=== PATIENT | male | born 2000 | race Two or more races ===

== ENCOUNTER 2024-07-27 16:08 | Emergency (ER) | payer SELFPAY ==
[~2024-07-27] VITALS: Ht 167.6 cm; Wt 89.9 kg
--- NOTE | 2024-07-27 16:43 | DVH ---
EXAM: XR Abdomen, 1 View CLINICAL INDICATION: pain TECHNIQUE: Frontal supine view of the abdomen/pelvis. COMPARISON: None FINDINGS: GASTROINTESTINAL TRACT: Fecal retention in the colon consistent with constipation. No dilation. BONES/JOINTS: Unremarkable. No acute fracture. OTHER FINDINGS: . . . .. IMPRESSION: Fecal retention in the colon consistent with constipation.
--- NOTE | 2024-07-27 16:55 | ED.PDOC ---
GI ASSESSMENT HPI Comments 23y M who presents to the ED for chief complaint of abdominal pain. Pt states he has been having diffuse abdominal pain for the past 2-3 days. Pt states the pain is diffusely located, achy in nature, constant, non-radiating rating the pain 3/10, with no associated exacerbating or relieving factors. Pt has associated constipation but otherwise any other symptoms. Pt states he has tried to use the restroom but states he has not been able to have a bowel movement in the past 2 days. Pt otherwise states his work does not have a bathroom and states he has been having to hold using the restroom until coming home from work. Pt otherwise states he is able to pass gas. Pt otherwise denies any other symptoms at this time. Time Seen by MD: 16:44 Reviewed Notes: Medications, Allergies Allergies: Coded Allergies: NO KNOWN ALLERGIES (Unverified , 07/27/24) Home Meds Active Scripts Docusate Sodium (Colace) 100 Mg Cap, 1 CAP PO BID, #30 CAP Prov:NIRANJAN PISANO MD 07/27/24 Information Source: Patient Mode of Arrival: Ambulatory Brought in by: brother Timing: Days Duration: Since onset Prehospital treatment: None Quality: None Vomitus: None Stool: Minimal Severity: Moderate Recent: None Recent Hx of: None Pain Location: Diffuse Modifying Factors: Nothing Associated sign and symptoms: Constipation, Abdominal Pain Past Medical History PAST MEDICAL HISTORY: Denies Surgical History: Denies all surgeries Family History Family History: Reviewed,noncontributory to illness Social History Smoker: Non-Smoker Alcohol: Denies ETOH Use Drugs: Marijuana Lives In: Home Constitutional: denies: chills, diaphoresis, fatigue, fever, malaise, sweats, weakness, others EENTM: denies: blurred vision, double vision, ear bleeding, ear discharge, ear drainage, ear pain, ear ringing, eye pain, eye redness, hearing loss, mouth pain, mouth swelling, nasal discharge, nose bleeding, nose congestion, nose pain, photophobia, tearing, throat pain, throat swelling, voice changes, others Respiratory: denies: cough, hemoptysis, orthopnea, SOB at rest, shortness of breath, SOB with excertion, stridor, wheezing, others Cardiovascular: denies: chest pain, dizzy spells, diaphoresis, Dyspnea on exertion, edema, irregular heart beat, left arm pain, lightheadedness, palpitations, PND, syncope, others Gastrointestinal: reports: abdominal pain, constipated; denies: abdomen distended, blood streaked bowels, diarrhea, dysphagia, difficulty swallowing, hematemesis, melena, nausea, poor appetite, poor fluid intake, rectal bleeding, rectal pain, vomiting, others Genitourinary: denies: burning, dysuria, flank pain, frequency, hematuria, incontinence, penile discharge, penile sore, pain, testicle pain, testicle swelling, urgency, others Neurological: denies: dizziness, fainting, headache, left sided numbness, left sided weakness, numbness, paresthesia, pre-existing deficit, right sided numbness, right sided weakness, seizure, speech problems, tingling, tremors, weakness, others Musculoskeletal: denies: back pain, gout, joint pain, joint swelling, muscle pain, muscle stiffness, neck pain, others Integumetry: denies: bruises, change in color, change in hair/nails, dryness, laceration, lesions, lumps, rash, wounds, others Allergic/Immunocompromised: denies: Difficulty Healing, Frequent Infections, Hives, Itching, others Hematologic/Lymphatic: denies: anemia, blood clots, easy bleeding, easy bruising, swollen glands, others Endocrine: denies: excessive hunger, excessive sweating, excessive thirst, excessive urination, flushing, intolerance to cold, intolerance to heat, unexplained weight gain, unexplained weight loss, others Psychiatric: denies: anxiety, bipolar disorder, depression, hopeless, panic disorder, schizophrenia, sleepless, suicidal, others All Other Systems: Reviewed and Negative Physical Exam General Appearance: No Apparent Distress HEENT: Normal ENT Inspection, Pharynx Normal, TMs Normal Neck: Full Range of Motion, Non-Tender, Normal, Normal Inspection Respiratory: Chest Non-Tender, Lungs Clear, No Accessory Muscle Use, No Respiratory Distress, Normal Breath Sounds Cardiovascular: No Edema, No JVD, No Murmur, No Gallop, Normal Peripheral Pulses, Regular Rate/Rhythm Breast Exam: Deferred Gastrointestinal: No Organomegaly, Non Tender, No Pulsatile Mass, Normal Bowel Sounds, Soft Genitalia: Deferred Pelvic: Deferred Rectal: Deferred Extremities: No calf tenderness, Normal capillary refill, Normal inspection, Normal range of motion, Non-tender, No pedal edema Musculoskeletal : Apperance: Normal Neurologic: Alert, laundry laborer II-XII nml as Tested, No Motor Deficits, Normal Affect, Normal Mood, No Sensory Deficits Cerebellar Function: Normal Reflexes: Normal Skin: Dry, Normal Color, Warm Lymphatic: No Adenopathy Was a procedure done? Was a procedure done?: No GI differential Dx Differential Diagnosis: Constipation, Esophagitis, Gastritis/PUD, Gastroenteritis, Hernia, Pancreatitis, UTI, Stress Ulcer, Kidney Stone X-Ray, Labs, Meds, VS Vital Signs Date Time Temp Pulse Resp B/P (MAP) Pulse Ox O2 Delivery O2 Flow Rate FiO2 07/27/24 17:04 98.1 70 16 126/70 (88) 96 PROCEDURE(s): KUB - KUB ABDOMEN SINGLE VIEW IMPRESSION: Fecal retention in the colon consistent with constipation. At this time, the patient was being discharged The patient will follow up with the primary care doctor The patient was given a prescription of Colace The patient will return to the emergency department's the condition worsens. Images Reviewed?: Images reviewed and evaluated by me Time of 1ST Reevaluation: 17:15 Reevaluation 1ST: Unchanged Patient Education/Counseling: Diagnosis, Treatment, Prognosis, Need For Follow Up Family Education/Counseling: Diagnosis, Treatment, Prognosis, Need For Follow Up Additional Information - I reviewed the following notes from patient's past medical encounters: - The following tests were ordered, and results were reviewed by me: (Labs, X- Ray, EKG):KUB abdomen, EKG x1, UA - Additional information was gathered from interviewing the following independent Historian: (Family, Other Providers, EMT): pt sister - I reviewed and agreed with the following test results read by other provider: (X-ray, CT, US): radiologist - I discussed treatments and results with medical personnel and: (consultants, family): none Departure 1 Departure Time of Disposition: 19:11 Impression: Primary Impression: Constipation Qualified Codes: K59.00 - Constipation, unspecified Additional Impression: Abdominal pain Qualified Codes: R10.9 - Unspecified abdominal pain Disposition: HOME / SELF CARE / HOMELESS Condition: Fair e-Prescriptions Docusate Sodium (Colace) 100 Mg Cap 1 CAP PO BID, #30 CAP Prov: NIRANJAN PISANO MD 07/27/24 Discharged With: Self Critical Care Note Critical Care Time?: No Stability Stability form required: No Heart Score Heart Score: Heart Score Response (Comments) Value History N/A 0 EKG N/A 0 Age N/A 0 Risk Factors N/A 0 Troponin N/A 0 Total 0 I personally scribed for NIRANJAN PISANO MD ([email or web address]) on 07/27/24 at 16:55. Electronically submitted by Gabrielle Castañeda ([email or web address]). I personally scribed for NIRANJAN PISANO MD ([email or web address]) on 07/27/24 at 16:56. Electronically submitted by Gabrielle Castañeda ([email or web address]). NIRANJAN PISANO MD Jul 27, 2024 16:55
[2024-07-27] MEDS ORDERED: DOCU-94 PO (19:10)
[2024-07-27 19:54] VITALS: BP 117/76; PULSE 61; RESP 18; TEMP 98.3; O2SAT 97
== END 2024-07-27 19:55 | disposition home or self-care (01) ==
LOC: ER 16:08
DX: K59.00 Constipation, unspecified (principal)
CPT/HCPCS: 74018